=== PATIENT | female | born 1970 | race Two or more races ===

== ENCOUNTER 2025-01-17 05:26 | Emergency (ER) | payer OTHER ==
[~2025-01-17] VITALS: Ht 162.6 cm; Wt 70.3 kg
[2025-01-17] MEDS ORDERED: TRAMADOL HCL 50 MG TABLET PO STA (06:00)
[2025-01-17] MEDS ORDERED: KETOROLAC TROMETHAMINE 30 MG VIAL IV STA (06:00)
[2025-01-17] MEDS ORDERED: KETOROLAC TROMETHAMINE 30 MG VIAL ONE ×2 (06:17→06:21)
[2025-01-17] MEDS ORDERED: 0.9 % SODIUM CHLORIDE 1,000 ML IV STA (06:58)
[2025-01-17] MEDS ORDERED: PROPOFOL 10,000 MCG/ML VIAL IV PUSH STA (06:59)
[2025-01-17] MEDS ORDERED: FLUMAZENIL 0.5 MG/5 ML ML IV STA (06:59)
[2025-01-17] MEDS ORDERED: PROPOFOL 10,000 MCG/ML VIAL ONE (07:06)
[2025-01-17] MEDS ORDERED: FLUMAZENIL 0.5 MG/5 ML ML IV ONE (07:07)
[2025-01-17 09:53] VITALS: BP 154/74; O2SAT 100
== END 2025-01-17 10:20 | disposition home or self-care (01) ==
LOC: ER 05:26
DX: S43.085A Other dislocation of left shoulder joint, initial encounter (principal); W18.39XA Other fall on same level, initial encounter; Y93.02 Activity, running; Y92.89 Other specified places as the place of occurrence of the external cause; Y99.9 Unspecified external cause status